=== PATIENT | female | born 1960 | race African-American/Black ===

== ENCOUNTER 2018-07-26 08:47 | Emergency (ER) | payer MEDICAID ==
[~2018-07-26] VITALS: Ht 167.6 cm; Wt 75.0 kg
[2018-07-26 09:04] VITALS: BP 143/79
== END 2018-07-26 09:21 | disposition home or self-care (01) ==
LOC: ER 08:47
DX: R07.89 Other chest pain (principal); M54.2 Cervicalgia; E11.9 Type 2 diabetes mellitus without complications
CPT/HCPCS: 99283

== ENCOUNTER 2018-08-29 15:16 | Inpatient (IN) | payer MEDICAID ==
[~2018-08-29] VITALS: Ht 157.5 cm; Wt 80.7 kg
[2018-08-29 20:42] LABS: BG BASE EXCESS -0.4 mmol/L (-2.0-2.0); BG CARBOXYHEMOGLOBIN 2.1 % (0.5-1.5); BG DEOXYHEMOGLOBIN 4.5 % (0.0-5.0); BG FRACTION INSPIRED OXYGEN 21; BG HCO3 ACT 24.2 mmol/L (22.0-26.0); BG METHEMOGLOBIN 0.1 % (0.0-1.5); BG OXYGEN SATURATION 95.4 % (92.0-98.5); BG OXYHEMOGLOBIN 93.3 % (94.0-97.0); BG PCO2 39.8 mmHg (35.0-45.0); BG PH 7.402 (7.350-7.450); BG PO2 81.1 mmHg (75.0-100.0); BG SAMPLE SITE RIGHT RADIAL; BG TOTAL HEMOGLOBIN 13.3 g/dL (12.0-18.0); BG VENT MODE ROOM AIR
[2018-08-29 20:58] LABS: BASOPHILS % 0.8 % (0.0-2.0); EOSINOPHILS % 0.8 % (0.0-5.0); HEMATOCRIT. 38.8 % (36.0-48.0); HEMOGLOBIN. 12.6 g/dL (12.0-16.0); LYMPHOCYTES % 33.5 % (20.0-50.0); MEAN CORPUSCULAR HEMOGLOBIN 28.1 pg (28.0-32.0); MEAN CORPUSCULAR VOLUME 86.5 fL (81.0-99.0); MEAN PLATELET VOLUME 7.9 fl (7.4-10.4); MONOCYTES % 5.2 % (2.0-8.0); NEUTROPHILS % 59.7 % (40.0-76.0); PLATELET 262 x1000/uL (130-400); RED BLOOD CELL COUNT 4.49 mill/uL (4.2-5.4); RED CELL DISTRIBUTION WIDTH 13.5 % (11.6-14.6)
[2018-08-29 21:05] LABS: CHLORIDE 98 mEq/L (98-107)
[2018-08-29 22:34] LABS: CLARITY URINE CLEAR (CLEAR); COLOR URINE YELLOW (YELLOW); KETONES URINE NEGATIVE (NEGATIVE); LEUKOCYTE ESTERASE URINE NEGATIVE (NEGATIVE); NITRITE URINE NEGATIVE (NEGATIVE); OCCULT BLOOD URINE NEGATIVE (NEGATIVE); PH URINE 6.5 (4.5-8.0); PROTEIN URINE NEGATIVE (NEGATIVE); SPECIFIC GRAVITY URINE 1.023 (1.005-1.030)
[2018-08-29 22:49] LABS: *AMPHETAMINES SCREEN URINE NEGATIVE (NEGATIVE); *BARBITURATES SCREEN URINE NEGATIVE (NEGATIVE)
[2018-08-29 22:50] LABS: *BENZODIAZEPINES SCREEN URINE NEGATIVE (NEGATIVE); *COCAINE SCREEN URINE PRESUMTIVE POSITIVE (NEGATIVE); CANNABINOID URINE SCREEN NEGATIVE (NEGATIVE); METHADONE URINE SCREEN NEGATIVE (NEGATIVE); OPIATES URINE SCREEN NEGATIVE (NEGATIVE); PHENCYCLIDINE URINE SCREEN NEGATIVE (NEGATIVE)
[2018-08-30] MEDS ORDERED: DOCUSATE SODIUM 100MG CAPSULE PO PRN (01:30)
[2018-08-30] MEDS ORDERED: CLONIDINE 0.1MG TABLET PO PRN (01:30)
[2018-08-30] MEDS ORDERED: ACETAMINOPHEN 325MG TABLET PO PRN (01:30)
[2018-08-30] MEDS ORDERED: ACETAMINOPHEN 650MG SUPP PR PRN (01:30)
[2018-08-30] MEDS ORDERED: ACETAMINOPHEN 650MG/20.3ML UDC GT PRN (01:30)
[2018-08-30] MEDS ORDERED: DIPHENHYDRAMINE 50MG/ML VIAL IV PRN (01:30)
[2018-08-30] MEDS ORDERED: HYDROCODONE/ACETAMINOPHEN 5/325MG TABLET PO PRN (01:30)
[2018-08-30] MEDS ORDERED: GUAIFENESIN 200MG/10ML SUGAR FREE UDC PO PRN (01:30)
[2018-08-30] MEDS ORDERED: MAGNESIUM/ALUMINUM HYDROXIDE/SIMETHICONE 30ML UDC PO PRN (01:30)
[2018-08-30] MEDS ORDERED: MORPHINE SULFATE 2 MG/ML CPJ (NOT FOR IM USE) IV PRN (01:30)
[2018-08-30] MEDS ORDERED: ONDANSETRON HCL 4MG/2ML INJ IV PRN (01:30)
[2018-08-30] MEDS ORDERED: IPRATROPIUM/ALBUTEROL 0.5-3(2.5)MG/3ML NEB INH PRN (01:30)
[2018-08-30] MEDS ORDERED: NA PHOS,M-B/NA PHOS,DI-BA ENEMA 118ML PR PRN (01:30)
[2018-08-30 07:09] LABS: CREATINE KINASE 46 IU/L (26-192)
[2018-08-30 07:10] LABS: CREATINE KINASE MB FRACTION < 1.0 ng/mL (0.5-3.6)
[2018-08-30 17:21] VITALS: BP 124/72
[2018-08-30 17:30] VITALS: BP 124/72
[2018-08-30] MEDS ORDERED: INSU100I28 SQ (17:46)
[2018-08-30] MEDS ORDERED: DEXTROSE 50% WATER 50ML SYRINGE IV PRN (19:00)
[2018-08-30 20:00] VITALS: BP 114/61
[2018-08-30] MEDS ORDERED: CEFTRIAXONE 1 G PREMIX 50 ML IV SCH (20:30)
[2018-08-30 20:51] LABS: BASOPHILS % 0.6 % (0.0-2.0); HEMATOCRIT. 40.2 % (36.0-48.0); LYMPHOCYTES % 31.4 % (20.0-50.0); MEAN CORPUSCULAR HEMOGLOBIN 28.1 pg (28.0-32.0); MEAN CORPUSCULAR VOLUME 86.7 fL (81.0-99.0); MEAN PLATELET VOLUME 8.1 fl (7.4-10.4); MONOCYTES % 6.2 % (2.0-8.0); NEUTROPHILS % 60.8 % (40.0-76.0); PLATELET 285 x1000/uL (130-400); RED BLOOD CELL COUNT 4.64 mill/uL (4.2-5.4); RED CELL DISTRIBUTION WIDTH 13.2 % (11.6-14.6)
[2018-08-30] MEDS: BLOOD SUGAR DIAGNOSTIC STRIP TEST SCH (20:53)
[2018-08-30] MEDS ORDERED: INSULIN GLARGINE HUM REC ANLOG 35 UNIT SQ SCH (21:00)
[2018-08-30] MEDS ORDERED: [UNRECOGNIZED DRUG - OTHER] SQ SCH (21:00)
[2018-08-30 21:03] LABS: CHLORIDE 97 mEq/L (98-107)
[2018-08-30 21:12] LABS: CREATINE KINASE 32 IU/L (26-192)
[2018-08-30 21:14] LABS: CREATINE KINASE MB FRACTION < 1.0 ng/mL (0.5-3.6)
[2018-08-30] MEDS: ATORVASTATIN CALCIUM 10MG TABLET PO SCH (21:24)
[2018-08-30] MEDS: ENOXAPARIN 30MG/0.3ML SYR SUBCUT SCH (21:24)
[2018-08-30] MEDS: INSULIN LISPRO 100 UNITS/ML SUBCUT SCH (21:27)
[2018-08-30] MEDS: INSULIN GLARGINE UD 100 UNITS/ML SYR SUBCUT SCH (21:28)
[2018-08-30] MEDS: SODIUM CHLORIDE 0.9% INJ 3ML FLUSH IVF SCH (21:28)
[2018-08-30] MEDS: BUDESONIDE 0.5MG/2ML NEB HHN SCH (21:49)
[2018-08-30 22:03] LABS: D-DIMER 0.38 mg/L FEU (<0.50); PARTIAL THROMBOPLASTIN TIME 20.8 sec (23.4-31.0)
[2018-08-31] VITALS (7 sets, daily range): BP systolic 100–148; BP diastolic 64–79
[2018-08-31] MEDS: ALBUTEROL (0.083%) 2.5MG/3ML NEB HHN SCH (00:52)
[2018-08-31] MEDS: IPRATROPIUM/ALBUTEROL 0.5-3(2.5)MG/3ML NEB HHN SCH ×4 (00:52→21:32)
[2018-08-31] MEDS: BLOOD SUGAR DIAGNOSTIC STRIP TEST SCH ×5 (06:10→21:12)
[2018-08-31] MEDS: SODIUM CHLORIDE 0.9% INJ 3ML FLUSH IVF SCH ×3 (07:11→21:16)
[2018-08-31] MEDS: INSULIN LISPRO 100 UNITS/ML SUBCUT SCH ×4 (07:11→21:15)
[2018-08-31 07:39] LABS: BASOPHILS % 0.7 % (0.0-2.0); EOSINOPHILS % 0.8 % (0.0-5.0); LYMPHOCYTES % 26.5 % (20.0-50.0); MEAN CORPUSCULAR HEMOGLOBIN 28.2 pg (28.0-32.0); MEAN CORPUSCULAR VOLUME 87.1 fL (81.0-99.0); MONOCYTES % 7.1 % (2.0-8.0); NEUTROPHILS % 64.9 % (40.0-76.0); PLATELET 266 x1000/uL (130-400); RED CELL DISTRIBUTION WIDTH 13.1 % (11.6-14.6)
[2018-08-31 07:52] LABS: CHLORIDE 96 mEq/L (98-107)
[2018-08-31 08:01] LABS: LDL CHOLESTEROL 113 mg/dL (5-100)
[2018-08-31 08:02] LABS: HDL CHOLESTEROL 46 mg/dL (40-59)
[2018-08-31] MEDS: ASPIRIN 81MG EC TABLET PO SCH ×2 (09:44→09:47)
[2018-08-31] MEDS: ENOXAPARIN 30MG/0.3ML SYR SUBCUT SCH ×2 (09:45→21:13)
[2018-08-31] MEDS: BUDESONIDE 0.5MG/2ML NEB HHN SCH ×2 (10:06→21:32)
[2018-08-31] MEDS ORDERED: DEXTROSE 50% WATER 50ML SYRINGE IV PRN (12:15)
[2018-08-31] MEDS ORDERED: INSULIN GLARGINE UD 100 UNITS/ML SYR SUBCUT NR (13:00)
[2018-08-31] MEDS ORDERED: METHYLPREDNISOLONE SOD SUCC 40 MG/ML VIAL IV NR (14:30)
[2018-08-31] MEDS: BENZONATATE 100MG CAPSULE PO SCH (15:57)
[2018-08-31] MEDS: NICOTINE 14MG PATCH TD SCH (15:58)
[2018-08-31] MEDS: SULFAMETHOXAZOLE/TRIMETHOPRIM 800/160MG TABLET PO SCH (15:58)
[2018-08-31] MEDS: AZITHROMYCIN 250 MG TABLET PO SCH (15:58)
[2018-08-31] MEDS ORDERED: MONTELUKAST SODIUM 10MG TABLET PO SCH (17:00)
[2018-08-31] MEDS: ATORVASTATIN CALCIUM 10MG TABLET PO SCH (21:12)
[2018-08-31] MEDS: INSULIN GLARGINE UD 100 UNITS/ML SYR SUBCUT SCH (21:16)
[2018-09-01] VITALS: BP 108/67
[2018-09-01] MEDS: BENZONATATE 100MG CAPSULE PO SCH ×2 (00:02→06:22)
[2018-09-01] MEDS: IPRATROPIUM/ALBUTEROL 0.5-3(2.5)MG/3ML NEB HHN SCH ×2 (01:55→13:27)
[2018-09-01 04:00] VITALS: BP 164/94
[2018-09-01 05:05] VITALS: BP 113/70
[2018-09-01] MEDS: SODIUM CHLORIDE 0.9% INJ 3ML FLUSH IVF SCH ×2 (06:00→12:09)
[2018-09-01] MEDS: BLOOD SUGAR DIAGNOSTIC STRIP TEST SCH ×2 (06:19→12:08)
[2018-09-01] MEDS: INSULIN LISPRO 100 UNITS/ML SUBCUT SCH ×2 (06:23→12:25)
[2018-09-01] MEDS: BUDESONIDE 0.5MG/2ML NEB HHN SCH (07:48)
[2018-09-01] MEDS: ALBUTEROL (0.083%) 2.5MG/3ML NEB HHN SCH (07:48)
[2018-09-01 08:00] VITALS: BP 166/67
[2018-09-01] MEDS ORDERED: PREDNISONE 20MG TABLET PO SCH (09:00)
[2018-09-01] MEDS: ASPIRIN 81MG EC TABLET PO SCH (09:33)
[2018-09-01] MEDS: AZITHROMYCIN 250 MG TABLET PO SCH (09:33)
[2018-09-01] MEDS: SULFAMETHOXAZOLE/TRIMETHOPRIM 800/160MG TABLET PO SCH (09:33)
[2018-09-01] MEDS: NICOTINE 14MG PATCH TD SCH (09:34)
[2018-09-01] MEDS: ENOXAPARIN 30MG/0.3ML SYR SUBCUT SCH (09:36)
[2018-09-01 12:00] VITALS: BP 106/64
[2018-09-01] MEDS ORDERED: AZIT500T3 MT (12:21)
[2018-09-01] MEDS ORDERED: P20 MT ×2 (12:21)
[2018-09-01 14:29] VITALS: BP 106/64
[2018-09-02 09:06] LABS: ABSOLUTE EOSINOPHILS 0.1 x10E3/uL (0.0-0.4); ABSOLUTE LYMPHOCYTES 1.9 x10E3/uL (0.7-3.1); ABSOLUTE MONOCYTES 0.4 x10E3/uL (0.1-0.9); ABSOLUTE NEUTROPHILS 3.5 x10E3/uL (1.4-7.0); BASOPHILS 1 % (Not Estab.); HEMATOCRIT 41.3 % (34.0-46.6); HEMOGLOBIN 12.5 g/dL (11.1-15.9); IMMATURE GRANULOCYTES 0 % (Not Estab.); LYMPHOCYTES 33 % (Not Estab.); MEAN CORPUSCULAR HEMOGLOBIN 27.2 pg (26.6-33.0); MEAN CORPUSCULAR HGB CONC. 30.3 g/dL (31.5-35.7); MEAN CORPUSCULAR VOLUME 90 fL (79-97); MONOCYTES 7 % (Not Estab.); NEUTROPHILS 58 % (Not Estab.); PLATELETS 279 x10E3/uL (150-379); RED CELL DISTRIBUTION WIDTH 13.6 % (12.3-15.4); WBC 5.9 x10E3/uL (3.4-10.8)
[2018-09-02 17:08] LABS: % CD 3 POS. LYMPHOCYTES 64.2 % (57.5-86.2); % CD 4 POS. LYMPHOCYTES 30.2 % (30.8-58.5); % CD 8 POS. LYMPH 32.5 % (12.0-35.5); ABSOLUTE CD 3 1220 /uL (622-2402); ABSOLUTE CD 4 HELPER 574 /uL (359-1519); ABSOLUTE CD 8 SUPPRESSOR 618 /uL (109-897); CD4/CD8 RATIO 0.93 (0.92-3.72)
== END 2018-09-01 15:00 | disposition home or self-care (01) | DRG 890 ==
LOC: ER 15:16 → 5WST 23:14 → EDBEDREQTM 23:18 → EDBEDREQ 23:18 → ENRESERV 08-30 15:11 → 5WST 08-30 18:09
PROVIDERS: ADMIT Family Medicine; ATTEND Family Medicine
PROC: 5A09357 Assistance with Respiratory Ventilation, Less than 24 Consecutive Hours, Continuous Positive Airway Pressure (ICD-10-PCS; principal; 2018-08-29)
DX: B20 Human immunodeficiency virus [HIV] disease (principal); J96.00 Acute respiratory failure, unspecified whether with hypoxia or hypercapnia; A41.9 Sepsis, unspecified organism; E46 Unspecified protein-calorie malnutrition; J18.9 Pneumonia, unspecified organism; E11.21 Type 2 diabetes mellitus with diabetic nephropathy; E11.42 Type 2 diabetes mellitus with diabetic polyneuropathy; T40.5X1A Poisoning by cocaine, accidental (unintentional), initial encounter; I11.0 Hypertensive heart disease with heart failure; E11.65 Type 2 diabetes mellitus with hyperglycemia; J44.1 Chronic obstructive pulmonary disease with (acute) exacerbation; J44.9 Chronic obstructive pulmonary disease, unspecified; B96.89 Other specified bacterial agents as the cause of diseases classified elsewhere; E78.00 Pure hypercholesterolemia, unspecified; E78.1 Pure hyperglyceridemia; E78.5 Hyperlipidemia, unspecified; E86.0 Dehydration; E87.1 Hypo-osmolality and hyponatremia; F14.10 Cocaine abuse, uncomplicated; F17.210 Nicotine dependence, cigarettes, uncomplicated; F31.9 Bipolar disorder, unspecified; Z96.641 Presence of right artificial hip joint; I50.9 Heart failure, unspecified; J44.0 Chronic obstructive pulmonary disease with (acute) lower respiratory infection; K21.9 Gastro-esophageal reflux disease without esophagitis; N39.0 Urinary tract infection, site not specified; Z79.4 Long term (current) use of insulin; Z82.49 Family history of ischemic heart disease and other diseases of the circulatory system; Y92.89 Other specified places as the place of occurrence of the external cause; Z59.0 Homelessness; Z90.49 Acquired absence of other specified parts of digestive tract; Z83.3 Family history of diabetes mellitus; Z98.891 History of uterine scar from previous surgery; E44.1 Mild protein-calorie malnutrition
CPT/HCPCS: 36415; 36600; 71045; 80061; 80305; 82375; 82550; 82553; 82805; 82962; 83036; 83880; 84484; 85379; 86359; 86360; 87077; 87186; 93005; 93306; 96365; 99285; J0696; J1650; J1815; J7050; J7512; J7611; J7620; J7626

== ENCOUNTER 2025-01-03 10:11 | Emergency (ER) | payer MEDICAID ==
[~2025-01-03] VITALS: Ht 160 cm; Wt 73.0 kg
[~2025-01-03 10:11] MED LIST: ATOR20TA65 MT; BENA5TAB40 MT; DARU800T MT; EMTR1TAB12 MT; GABA-290 MT; INSLIS SUBCUT; INSU100I24 SQ; QUET200T MT; RITO100T MT
[2025-01-03 10:14] VITALS: O2SAT 99
[2025-01-03] MEDS: SODIUM CHLORIDE 0.9% 1,000 ML IV ONE (11:05)
[2025-01-03] MEDS: FLUCONAZOLE 100MG TABLET PO ONE (11:17)
[2025-01-03 11:18] LABS: BASOPHILS % 0.8 % (0.0-2.0); EOSINOPHILS % 0.3 % (0.0-5.0); HEMATOCRIT. 41.7 % (36.0-48.0); HEMOGLOBIN. 13.5 g/dL (12.0-16.0); LYMPHOCYTES % 19.2 % (20.0-50.0); MEAN CORPUSCULAR HEMOGLOBIN 28.5 pg (28.0-32.0); MEAN CORPUSCULAR HGB CONC 32.5 g/dL (31.0-37.0); MEAN CORPUSCULAR VOLUME 87.7 fL (81.0-99.0); MEAN PLATELET VOLUME 8.5 fl (7.4-10.4); MONOCYTES % 4.6 % (2.0-8.0); NEUTROPHILS % 75.1 % (40.0-76.0); PLATELET 301 x1000/uL (130-400); RED BLOOD CELL COUNT 4.75 mill/uL (4.2-5.4); RED CELL DISTRIBUTION WIDTH 12.9 % (11.6-14.6); WHITE BLOOD COUNT 6.9 x1000/uL (4.5-11.0)
[2025-01-03 11:22] LABS: INR 0.9; PROTHROMBIN TIME 9.8 sec (9.6-11.0)
[2025-01-03 11:35] LABS: CHLORIDE 101 mEq/L (98-107); POTASSIUM 4.3 mEq/L (3.5-5.1); SODIUM 136 mEq/L (136-145)
[2025-01-03 11:36] LABS: CALCIUM 9.8 mg/dL (8.7-10.4); CARBON DIOXIDE 29 mEq/L (21-32)
[2025-01-03 11:41] LABS: CREATININE 0.9 mg/dL (0.6-1.0); GLUCOSE 345 mg/dL (70-105); UREA NITROGEN BLOOD 15 mg/dL (9-23)
[2025-01-03 12:00] LABS: TROPONIN I HIGH SENSITIVITY < 4 ng/L (3.0-34)
[2025-01-03 12:23] LABS: CLARITY URINE CLOUDY (CLEAR); COLOR URINE YELLOW (YELLOW); GLUCOSE URINE 3+ (NEGATIVE); KETONES URINE NEGATIVE (NEGATIVE); LEUKOCYTE ESTERASE URINE TRACE (NEGATIVE); NITRITE URINE NEGATIVE (NEGATIVE); OCCULT BLOOD URINE TRACE (NEGATIVE); PH URINE 7.5 (4.5-8.0); PROTEIN URINE 2+ (NEGATIVE)
[2025-01-03] MEDS: INSULIN REGULAR (HUMULIN R) 1000UNITS/10ML VIAL IV ONE (12:28)
[2025-01-03 12:45] VITALS: BP 154/84; PULSE 82; RESP 16; TEMP 36.8; O2SAT 100
[2025-01-03 12:45] LABS: BACTERIA URINE 2+; RBC URINE 0-2 /hpf (0-2); SQUAMOUS EPITHELIAL CELL URINE 1+ /lpf (RARE/1+); YEAST URINE NONE SEEN
== END 2025-01-03 13:05 | disposition home or self-care (01) ==
LOC: ER 10:11
DX: E11.65 Type 2 diabetes mellitus with hyperglycemia (principal); R10.2 Pelvic and perineal pain; N76.0 Acute vaginitis; I25.2 Old myocardial infarction; I10 Essential (primary) hypertension; F14.90 Cocaine use, unspecified, uncomplicated; J44.9 Chronic obstructive pulmonary disease, unspecified; E78.00 Pure hypercholesterolemia, unspecified; Z79.624 Long term (current) use of inhibitors of nucleotide synthesis; Z79.899 Other long term (current) drug therapy; Z79.4 Long term (current) use of insulin
CPT/HCPCS: 99285; 96374; 71045; 96361; 80048; 81003; 82962; 85025; 85610; 84484; 36415; 93005; J7030; J1815